=== PATIENT | female | born 1990 | race Asian ===

== ENCOUNTER → 2017-07-25 | Outpatient (CLI) | payer BC, OTHER ==
[~2017-07-25] MED LIST: MISC-836; PRENTAB26 PO
[2017-07-25 13:11] LABS: BASO % 0.2 %; BASO ABS # 0.02 K/uL (0-0.2); EOS % 4.3 %; EOS ABS # 0.36 K/uL (0-0.5); HEMATOCRIT 33.9 % (37-47); HEMOGLOBIN 11.4 g/dL (12.0-16.0); IG# 0.05 K/uL (0.00-0.02); LYMPH % 20.2 %; LYMPH ABS # 1.68 K/uL (1.2-3.4); MEAN CELL VOLUME 95.5 fL (80-100); MEAN CORPUSCULAR HEMOGLOBIN 32.1 pg (25-34); MEAN CORPUSCULAR HGB CONC 33.6 g/dl (32-36); MEAN PLATELET VOLUME 11.2 fL (7.4-10.4); MONO % 6.9 %; MONO ABS # 0.57 K/uL (0.11-0.59); NEUT % 67.8 %; NEUT ABS # 5.64 K/uL (1.4-6.5); PLATELET COUNT 164 K/uL (130-400); RED CELL DISTRIBUTION WIDTH SD 45.5 fL (36.4-46.3); WHITE BLOOD COUNT 8.32 K/uL (4.8-10.8)
== END | disposition home or self-care (01) ==
LOC: C.LAB1850 11:35
PROVIDERS: ATTEND Obstetrics & Gynecology
DX: Z34.92 Encounter for supervision of normal pregnancy, unspecified, second trimester (principal)

== ENCOUNTER → 2017-07-25 | Outpatient (CLI) | payer BC, OTHER | END | disposition home or self-care (01) | LOC: C.LABSPEC 13:19 | PROVIDERS: ATTEND Obstetrics & Gynecology | DX: Z34.92 Encounter for supervision of normal pregnancy, unspecified, second trimester (principal) ==

== ENCOUNTER → 2017-07-25 | Outpatient (CLI) | payer BC, OTHER | END | disposition home or self-care (01) | LOC: C.PAPS 14:09 | PROVIDERS: ATTEND Obstetrics & Gynecology | DX: Z12.4 Encounter for screening for malignant neoplasm of cervix (principal); Z34.92 Encounter for supervision of normal pregnancy, unspecified, second trimester ==

== ENCOUNTER → 2017-08-06 | Outpatient (CLI) | payer OTHER | END | disposition home or self-care (01) | LOC: C.LAB1850 08:28 | PROVIDERS: ATTEND Obstetrics & Gynecology | DX: O28.9 Unspecified abnormal findings on antenatal screening of mother (principal); Z3A.00 Weeks of gestation of pregnancy not specified ==

== ENCOUNTER → 2017-09-24 | Outpatient (CLI) | payer OTHER | END | disposition home or self-care (01) | LOC: C.LABSPEC 16:07 | PROVIDERS: ATTEND Obstetrics & Gynecology | DX: Z34.83 Encounter for supervision of other normal pregnancy, third trimester (principal) ==

== ENCOUNTER 2017-10-17 03:01 | Inpatient (IN) | payer OTHER ==
[~2017-10-17] VITALS: Ht 160 cm; Wt 66.0 kg
[2017-10-24] MEDS ORDERED: PENICILLIN G POTASSIUM IV 3 MU in DEXTROSE 5% 100ML 100 ML IV PRN (07:45)
[2017-10-24] MEDS ORDERED: LACTATED RINGER'S 1000ML 1,000 ML IV PRN (07:57)
[2017-10-24] MEDS ORDERED: LACTATED RINGER'S 1000ML 500 ML IV PRN ×2 (07:57→11:38)
[2017-10-24] MEDS ORDERED: LACTATED RINGER'S 1000ML 1,000 ML IV SCH (07:57)
[2017-10-24] MEDS ORDERED: OXYTOCIN 30 UNITS/500ML NSS IV PRN ×2 (08:00→14:00)
[2017-10-24 08:15] LABS: HEMATOCRIT 35.3 % (37-47); HEMOGLOBIN 12.1 g/dL (12.0-16.0); MEAN CELL VOLUME 94.9 fL (80-100); MEAN CORPUSCULAR HEMOGLOBIN 32.5 pg (25-34); MEAN CORPUSCULAR HGB CONC 34.3 g/dl (32-36); MEAN PLATELET VOLUME 12.2 fL (7.4-10.4); PLATELET COUNT 139 K/uL (130-400); RED CELL DISTRIBUTION WIDTH CV 13.9 % (11.5-14.5); RED CELL DISTRIBUTION WIDTH SD 48.4 fL (36.4-46.3); WHITE BLOOD COUNT 8.26 K/uL (4.8-10.8)
[2017-10-24] MEDS: LACTATED RINGER'S 1000ML 1,000 ML IV SCH ×2 (08:44→11:42)
[2017-10-24] MEDS ORDERED: PENICILLIN G POTASSIUM IV 6 MU in DEXTROSE 5% 250ML 250 ML IV ONE (08:45)
[2017-10-24 10:13] VITALS: Ht 160 cm; Wt 66.0 kg
[2017-10-24] MEDS ORDERED: PRENTAB26 PO (10:28)
[2017-10-24] MEDS ORDERED: BUPIVACAINE 0.25% 30 ML VIAL ONE (10:35)
[2017-10-24] MEDS ORDERED: FENTANYL CITRATE INJ 50 MCG/1 ML 2 ML VIAL ONE (10:36)
[2017-10-24] MEDS ORDERED: EpHEDrine SULFATE INJ 50 MG/ML AMP ONE (10:36)
[2017-10-24] MEDS ORDERED: FENTANYL 2MCG/ML ROPIV 1.25MG/ML 100ML BAG EPI ONE (10:37)
[2017-10-24] MEDS ORDERED: EpHEDrine SULFATE INJ 50 MG/ML AMP IV PRN (11:45)
[2017-10-24] MEDS ORDERED: NALOXONE HCL INJ 0.4 MG/1 ML VIAL/CARP IV PRN (11:45)
[2017-10-24] MEDS ORDERED: FENTANYL 2MCG/ML ROPIV 1.25MG/ML 100ML BAG EPI PRN (11:45)
[2017-10-24] MEDS ORDERED: METHYLERGONOVINE MALEATE 0.2 MG/ML AMP ONE (13:31)
[2017-10-24] MEDS ORDERED: MISOPROSTOL 200 MCG TAB ONE (13:38)
[2017-10-24] MEDS ORDERED: METHYLERGONOVINE MALEATE 0.2 MG/ML AMP IM ONE (14:00)
[2017-10-24] MEDS ORDERED: LANOLIN OINT EXT PRN (14:00)
[2017-10-24] MEDS ORDERED: HYDROCORTISONE ACETATE 25 MG SUPP PR PRN (14:00)
[2017-10-24] MEDS ORDERED: MEASLES, MUMPS & RUBELLA VIRUS VIAL SQ. ONE (14:00)
[2017-10-24] MEDS ORDERED: ACETAMINOPHEN 325 MG TAB PO PRN (14:00)
[2017-10-24] MEDS ORDERED: IBUPROFEN 600 MG TAB PO PRN (14:00)
[2017-10-24] MEDS ORDERED: OXYCODONE/ACETAMINOPHEN 5-325 TAB PO PRN (14:00)
[2017-10-24] MEDS ORDERED: DIPHTHERIA/TETANUS/PERTUSSIS 0.5 ML SYR/VIAL IM. ONE (14:00)
[2017-10-24] MEDS ORDERED: BENZOCAINE 20% AER SPR 82.5 GM CAN EXT PRN (14:00)
[2017-10-24] MEDS ORDERED: MISOPROSTOL 200 MCG TAB PR ONE (14:00)
[2017-10-24] MEDS ORDERED: SUPERCREAM 0.870 % 15GM JAR EXT PRN (14:00)
--- NOTE | 2017-10-24 16:11 | DELIVERY SUMMARY ---
DATE OF OPERATION: 10/24/2017 PREOPERATIVE DIAGNOSIS: Intrauterine at 41 and 0/7 weeks. POSTOPERATIVE DIAGNOSES: 1. Same. 2. Vacuum-assisted vaginal delivery. 3. Second-degree perineal laceration with repair. SURGEON: Elena Mcallister MD ANESTHESIA: Epidural. ESTIMATED BLOOD LOSS: 475 mL. PROCEDURE IN DETAIL: The patient presented to labor and delivery. She was 3, 80 and -2. Pitocin augmentation was started. She received an epidural anesthesia and was found to be 5, 90 and -2. She was noticed to be leaking some fluid and most likely ruptured at that time. The patient then progressed spontaneously to complete complete and +2 station. She began pushing. Unfortunately, her effort was poor. She complained of being dizzy and wanted to eat and was not able to effectively push. The heart tones were in the 70s to 80s. We tried very diligently to encourage the patient to push as the fetus was at +3 station, but she was tried to push and then gave up in the middle of the pushing, claimed that she could not do it. Therefore, vacuum was called. I already got verbal permission to place the vacuum, which was done at +3 station in BUSH presentation. The baby was then delivered over the next contraction with 1 popoff and 2 pushes. The nose and mouth were bulb suctioned and nuchal cord x1 was reduced with ease. The rest of the baby was then delivered without difficulty. The nose and mouth were again bulb suctioned. The was placed on the maternal abdomen for drying and attention. Cord was clamped and cut at 1 minutes of life. Placenta was delivered spontaneously intact with a 3-vessel cord. Cervix, sulci and rectum were examined and found to be intact. A second-degree perineal laceration was repaired with 3-0 and 4-0 Vicryl. Hemostasis was obtained with dilute Pitocin, IM methargen and 600 mcg of Cytotec rectally. Estimated blood loss was 475 mL. Apgars pending. Mother and baby were doing well at the end of the delivery. I attest to the content of the Intraoperative Record and any orders documented therein. Any exception s are noted below.
--- NOTE | 2017-10-24 16:42 | Anesthesia Procedure Note ---
Anesthesia Epidural Removal Nt Date & Time Oct 24, 2017 at 16:41 Vital Signs Pain Intensity: 0.0 Notes Mental Status: alert / awake / arousable, participated in evaluation Nausea / Vomiting: adequately controlled Pain: adequately controlled Airway Patency, RR, SpO2: stable & adequate BP & HR: stable & adequate Hydration State: stable & adequate Neuraxial Anesthesia: was administered Anesthetic Complications: no major complications apparent, pt satisfied with anesthetic care Epidural: removed without complications, with tip intact
[2017-10-24] MEDS: DOCUSATE SODIUM 100 MG CAP PO SCH (19:56)
[2017-10-24 23:50] VITALS: BP 106/69; PULSE 84; TEMP 37.1; O2SAT 96
[2017-10-25 03:05] VITALS: BP 98/65; PULSE 94; TEMP 37; O2SAT 96
--- NOTE | 2017-10-25 07:51 | Progress Note ---
Subjective Oct 25, 2017. Subjective conversation w/ patient, physical exam Ambulation: ambulating normally Voiding: no voiding problems Passing Gas: Yes Diet Tolerance: Regular Diet Lochia: Moderate Feeding Type: Breast Feeding Pain: minimal to no pain reported Comment: seen and assessed at bedside, no acute events overnight Review of Systems Constitutional: No fever, No chills Respiratory: No cough, No shortness of breath Cardiac: No chest pain, No edema Abdomen: No nausea, No vomiting no headaches or calf pain Objective Vital Signs Date Time Temp Pulse Resp B/P (MAP) Pulse Ox O2 Delivery O2 Flow Rate FiO2 10/25/17 03:05 37.0 94 16 98/65 (76) 96 Room Air 10/24/17 23:50 37.1 84 16 106/69 (81) 96 Room Air 10/24/17 23:50 96 Room Air Physical Exam General Appearance: WELL-APPEARING, NO APPARENT DISTRESS Respiratory/Chest: lungs clear, normal breath sounds Cardiovascular: regular rate, rhythm, no murmur Abdomen: normal bowel sounds, non tender Fundus: Firm, Non-Tender, Relation to Umbilicus (at to 1 below) Extremities: normal range of motion, non-tender, normal inspection, no calf tenderness, + pedal edema (1+ bilat) Laboratory Results Last 24 Hours Test 10/24/17 08:05 10/25/17 07:37 White Blood Count 8.26 K/uL Red Blood Count 3.72 M/uL Hemoglobin 12.1 g/dL Hematocrit 35.3 % Mean Corpuscular Volume 94.9 fL Mean Corpuscular Hemoglobin 32.5 pg Mean Corpuscular Hemoglobin Concent 34.3 g/dl RDW Standard Deviation 48.4 fL RDW Coefficient of Variation 13.9 % Platelet Count 139 K/uL Mean Platelet Volume 12.2 fL Medications Current Inpatient Medications Medications (Trade) Dose Ordered Sig/Bret Route Start Time Stop Time Status Last Admin Dose Admin Oxytocin (Pitocin IV) 30 units UD PRN IV 10/24/17 14:00 11/23/17 13:59 Benzocaine (Dermoplast Aero Spr) 1 appln PRN PRN EXT 10/24/17 14:00 11/23/17 13:59 Cocaine HCl (Supercream 0.870% Cr) BID PRN EXT 10/24/17 14:00 11/07/17 13:59 Hydrocortisone Acetate (Anusol Hc Supp) 25 mg BID PRN [place] 10/24/17 14:00 11/23/17 13:59 Lanolin (Lanolin Oint) PRN PRN EXT 10/24/17 14:00 11/23/17 13:59 Prenat Multivit/ [place]/Iron/Folic Ac ( Vitamin Tab) 1 tab DAILY PO 10/25/17 08:00 11/24/17 07:59 Ibuprofen (Motrin Tab) 600 mg Q4H PRN PO 10/24/17 14:00 11/23/17 13:59 Acetaminophen (Tylenol Tab) 650 mg Q6H PRN PO 10/24/17 14:00 11/23/17 13:59 Oxycodone/ Acetaminophen (Percocet 5-325mg Tab) 1 tab Q4H PRN PO 10/24/17 14:00 11/07/17 13:59 Docusate Sodium (coLACE CAP) 100 mg BID PO 10/24/17 20:00 11/23/17 19:59 10/24/17 19:56 100 MG Assessment and Plan Post- Day#: 1 Continue Routine Care: 27yo F PPD 1 s/p Doing well clinically Continue routine care: encourage ambulation, breast feeding, pain control Patient rubella non-immune, will need MMRV Resident Physician Supervision Note: I interviewed and examined the patient. Discussed with Dr. Hussein and agree with findings and plan as documented in the note. Any exceptions or clarifications are listed here: Doing well. Routine care. Documented By: Elena Mcallister Resident Tracking Resident Involvement: Resident Care Provided Care Provided: OB Delivery
[2017-10-25 08:24] LABS: HEMOGLOBIN 11.9 g/dL (12.0-16.0)
[2017-10-25] MEDS: DOCUSATE SODIUM 100 MG CAP PO SCH ×2 (08:26→20:15)
[2017-10-25] MEDS: PRENATAL VITAMIN TAB PO SCH (08:26)
[2017-10-25 08:30] VITALS: BP 107/70; TEMP 36.8; O2SAT 96
[2017-10-25 12:10] VITALS: BP 104/68; PULSE 91; TEMP 36.6; O2SAT 95
[2017-10-25 15:45] VITALS: BP 103/66; PULSE 90; TEMP 36.7; O2SAT 97
[2017-10-25 20:20] VITALS: BP 97/63; PULSE 93; TEMP 36.8; O2SAT 96
[2017-10-25 23:45] VITALS: BP 99/63; PULSE 97; TEMP 36.5; O2SAT 97
--- NOTE | 2017-10-26 01:55 | Discharge Instructions ---
Discharge Instructions Date of Service Oct 26, 2017. Admission Reason for Admission: Induction Discharge Discharge Diagnosis / Problem: Vaginal delivery Discharge Goals Goal(s): Routine recovery after delivery Activity Recommendations Activity Limitations: per Instructions/Follow-up section . Instructions / Follow-Up Instructions / Follow-Up ACTIVITY RECOMMENDATIONS: * Gradual return to full activity over the next 2-3 weeks. * No lifting - nothing heavier than baby over the next 2-3 weeks. * Do not engage in vigorous exercise, sexual activity or sports until cleared by your physician. * Do not drive or operate any motorized equipment until cleared by your physician. * You may shower/bathe daily. MEDICATIONS: For discomfort or pain, you may use Acetaminophen (Tylenol), Ibuprofen (Advil), or Naproxen (Aleve) following the package directions. For constipation you may use Colace following the package directions. BREAST CARE: If you are not breast feeding: * Wear a supportive bra 24 hours a day for one to two weeks. * Avoid stimulating your breasts and nipples as much as possible during the first few weeks after delivery. * When taking a shower, have the warm water hit your back, not breasts. * When your breasts feel full, apply ice packs. Usually three to four times a day helps ease the discomfort. * Take a mild pain medication (Tylenol / Motrin) when you are uncomfortable. If breast feeding: * Use breast milk to lubricate nipples. Lansinoh cream may be used for sore nipples. You do not need to remove cream prior to breast feeding. If using a different brand of cream, check the label for directions regarding removal of cream prior to nursing. * Wear a supportive bra. * If having problems with breasts or breast feeding, call a senior consumer insights consultant or your health care provider. EPISIOTOMY CARE: After delivery, if you have an episiotomy (stitches), the following steps will ease discomfort and aid healing. * For the first 24 hours after delivery, place ice packs next to your episiotomy to help reduce swelling. * After the first 24 hour-period, sitz baths, either portable or in the tub, are suggested. A shower with a shower arm sprayed over the episiotomy may be comforting. * [place] care should be done after each voiding and bowel movement. Squirt warm water from a plastic bottle over the perineum (region of the body between the anus and urinary opening) and pat dry. * Use Dermoplast to ease discomfort. Shake container. [place] directly over the episiotomy. Place a Tucks on a clean sanitary pad next to your episiotomy. SPECIAL CARE INSTRUCTIONS: When you are discharged from the hospital, it is important for you to follow the instructions listed below: * During the first week at home, you should be able to care for yourself and your baby. In addition, the usual light household activities are encouraged. * Limit your activities to the way you feel. Do not try to clean the house or move furniture. Be sensible. * If you actively engage in sports and have done so up until the time of your delivery, you may resume these activities as soon as you feel able. This may take up to one month or even longer. Use good judgment. * Continue to take your vitamins for at least six weeks after the of your baby. * Your diet need not be limited unless you were on a special diet before your delivery. Breast-feeding mothers need around 2500 calories per day and at least 64-80 ounces of fluid per day (8 to 10 glasses). * You should eat foods from the four major food groups. Crash diets or fad diets are to be avoided. Eating lean meats, fresh fruits and vegetables, low-fat dairy products, high fiber foods and a regular exercise program, will help you get back to your pre- weight without putting your health at risk. * Constipation is sometimes a problem after delivery. Take a mild laxative as needed. If breast feeding, Milk of Magnesia is acceptable to use. You may use a suppository or Fleets enema if no episiotomy. * A daily shower or tub bath is suggested. Be sure to thoroughly and gently dry the perineum. * A bloody vaginal discharge will usually continue until around four weeks post . A small amount of bleeding may continue for as long as six weeks. Vaginal discharge changes from the bright red bleeding after delivery to pink then brownish and finally yellowish-pink before becoming white and disappearing. * Bleeding may increase with activity. Your first period may come in 4-8 weeks. If you are breast feeding, your period may be delayed even longer. * [place] (sex) can begin whenever both you and your partner feel comfortable and do not have any form of genital infection. It is recommended that you wait at least six weeks for internal and external healing to occur. If you have questions, please talk to your health care practitioner. A condom should be used to prevent infection and . * Foreplay, gentle intercourse and lubrication is very important the first several times to prevent pain. A water-based lubricant such as K-Y jelly or Astroglide may be used. * If you have RH negative blood and your baby is RH positive, you will receive RHOGAM by injection prior to discharge. The nurse will give you a card to keep with you that has the date and place that you received RHOGAM after delivery. * During your care, you had a Rubella screen done to check for the presence of rubella antibodies in your blood. If your test was negative, you will receive a Rubella vaccine prior to discharge. This vaccine may cause a fever, soreness at the injection site and flu-like symptoms. If these symptoms persist, notify your health care practitioner. is not advised for one month after a Rubella vaccine. * Verbalizes understanding of car seat law as reviewed with patient nursing. * Car Seat hand-out given and reviewed with patient by nursing. * Shaken baby information reviewed with patient by nursing. Call you doctor if: * Heavy bleeding (saturating several pads an hour) or passing clots the size of your fist. * A fever >101 degrees F (38.3 degrees C) on two occasions four hours apart and /or chills. * Unusual pain in the pelvic or vaginal areas. * "Baby Blues" lasting longer than two weeks. If you have any questions or concerns, call your health care practitioner at . FOLLOW UP VISIT: * Please call the office at to schedule a 6 week examination. It is important you keep this appointment. It is important for you to make arrangements for either yearly or twice yearly check-ups thereafter. Current Hospital Diet Patient's current hospital diet: Regular OB Diet Discharge Diet Recommended Diet: Regular Diet Pending Studies Studies pending at discharge: no Medical Emergencies . Who to Call and When: Medical Emergencies: If at any time you feel your situation is an emergency, please call 911 immediately. . Non-Emergent Contact Non-Emergency issues call your: Primary Care Provider . . "Provider Documentation" section prepared by Samantha Santana. .
--- NOTE | 2017-10-26 06:32 | Progress Note ---
Subjective Oct 26, 2017. Subjective conversation w/ patient, conversation w/ family, physical exam Ambulation: ambulating normally Voiding: no voiding problems Passing Gas: Yes Diet Tolerance: Regular Diet Lochia: Small Feeding Type: Breast Feeding Pain: Reports no pain Comment: Seen and assessed at bedside; no acute events overnight Review of Systems Constitutional: No fever, No chills Respiratory: No cough, No shortness of breath Cardiac: No chest pain, No edema Abdomen: No nausea, No vomiting no headaches or calf pain Objective Vital Signs Date Time Temp Pulse Resp B/P (MAP) Pulse Ox O2 Delivery O2 Flow Rate FiO2 10/25/17 23:45 97 Room Air 10/25/17 23:45 36.5 97 20 99/63 (75) 97 Room Air 10/25/17 20:20 36.8 93 20 97/63 (74) 96 Room Air 10/25/17 15:45 36.7 90 20 103/66 (78) 97 Room Air 10/25/17 15:45 97 Room Air 10/25/17 12:10 36.6 91 20 104/68 (80) 95 Room Air 10/25/17 08:30 36.8 18 107/70 (82) 96 Room Air 10/25/17 08:30 96 Room Air Physical Exam General Appearance: WELL-APPEARING, NO APPARENT DISTRESS Respiratory/Chest: lungs clear, normal breath sounds Cardiovascular: regular rate, rhythm, no murmur Abdomen: normal bowel sounds, non tender, soft Fundus: Firm, Non-Tender, Relation to Umbilicus (1 below) Extremities: normal range of motion, non-tender, normal inspection, no pedal edema, no calf tenderness Laboratory Results Last 24 Hours Test 10/25/17 07:37 Hemoglobin 11.9 g/dL Hematocrit 34.0 % Medications Current Inpatient Medications Medications (Trade) Dose Ordered Sig/Bret Route Start Time Stop Time Status Last Admin Dose Admin Oxytocin (Pitocin IV) 30 units UD PRN IV 10/24/17 14:00 11/23/17 13:59 Benzocaine (Dermoplast Aero Spr) 1 appln PRN PRN EXT 10/24/17 14:00 11/23/17 13:59 Cocaine HCl (Supercream 0.870% Cr) BID PRN EXT 10/24/17 14:00 11/07/17 13:59 Hydrocortisone Acetate (Anusol Hc Supp) 25 mg BID PRN [place] 10/24/17 14:00 11/23/17 13:59 Lanolin (Lanolin Oint) PRN PRN EXT 10/24/17 14:00 11/23/17 13:59 Prenat Multivit/ [place]/Iron/Folic Ac ( Vitamin Tab) 1 tab DAILY PO 10/25/17 08:00 11/24/17 07:59 10/25/17 08:26 1 TAB Ibuprofen (Motrin Tab) 600 mg Q4H PRN PO 10/24/17 14:00 11/23/17 13:59 Acetaminophen (Tylenol Tab) 650 mg Q6H PRN PO 10/24/17 14:00 11/23/17 13:59 Oxycodone/ Acetaminophen (Percocet 5-325mg Tab) 1 tab Q4H PRN PO 10/24/17 14:00 11/07/17 13:59 Docusate Sodium (coLACE CAP) 100 mg BID PO 10/24/17 20:00 11/23/17 19:59 10/25/17 20:15 100 MG Assessment and Plan Post- Day#: 2 Continue Routine Care: 27 yo F PPD 2 s/p Pt doing well clinically Continue routine care: breast feeding, ambulation, pain control prn Home today, discharge instructions reviewed Rubella non-immune, needs vaccination Resident Tracking Resident Involvement: Resident Care Provided Care Provided: OB Delivery
[2017-10-26 07:50] VITALS: BP 105/72; PULSE 87; TEMP 36.5; O2SAT 96
[2017-10-26] MEDS: PRENATAL VITAMIN TAB PO SCH (08:41)
[2017-10-26] MEDS: DOCUSATE SODIUM 100 MG CAP PO SCH (08:41)
[2017-10-26] MEDS ORDERED: MISC-836 (14:37)
[2017-10-26 15:06] VITALS: BP_DIAS 72; PULSE 87; TEMP 36.5
== END 2017-10-26 15:35 | disposition home or self-care (01) | DRG 775 ==
LOC: C.LD 10-24 07:21 → C.OBG 10-24 17:34
PROVIDERS: ADMIT Obstetrics & Gynecology; ATTEND Obstetrics & Gynecology
PROC: 0KQM0ZZ Repair Perineum Muscle, Open Approach (ICD-10-PCS; principal; 2017-10-24)
PROC: 10D07Z6 Extraction of Products of Conception, Vacuum, Via Natural or Artificial Opening (ICD-10-PCS; principal; 2017-10-24)
PROC: 3E033VJ Introduction of Other Hormone into Peripheral Vein, Percutaneous Approach (ICD-10-PCS; 2017-10-24)
DX: O48.0 Post-term pregnancy (principal); O70.1 Second degree perineal laceration during delivery; O99.820 Streptococcus B carrier state complicating pregnancy; O69.81X0 Labor and delivery complicated by cord around neck, without compression, not applicable or unspecified; Z23 Encounter for immunization; Z3A.41 41 weeks gestation of pregnancy